=== PATIENT | male | born 1965 | race African-American/Black ===

== ENCOUNTER 2017-09-03 12:55 | Emergency (ER) | payer MEDICARE, MEDICAID ==
[~2017-09-03] VITALS: Ht 182.9 cm; Wt 76.2 kg
--- NOTE | 2017-09-03 13:15 | NUR ---
BIB [facility] FOR FULL TONIC CLONIC SEIZURE, 2MG VERSED GIVEN IN FIELD. PATIENT IS CURRENTLY A/OX 2, BREATHING EVEN AND UNLABORED. NO SOB, NAD. VITALS STABLE. SAFETY AND COMFORT MEASURES IN PLACE. IV INTACT AND PATENT ON RFA, 18 G. AWAITING MD ORDERS.
[2017-09-03] MEDS ORDERED: ALBUTEROL FS 2.5 MG/0.5 ML VIAL.NEB NEB ONE (13:30)
[2017-09-03 13:36] LABS: BASOPHILS # (AUTO) 0.2 /CMM (0.0-0.2); BASOPHILS % (AUTO) 2.9 % (0.0-2.0); EOSINOPHILS # (AUTO) 0.1 /CMM (0.0-0.7); EOSINOPHILS % (AUTO) 1.3 % (0.0-6.0); HEMATOCRIT 38 % (39-51); LYMPHOCYTES % (AUTO) 13.6 % (20.0-44.0); MEAN CORPUSCULAR HEMOGLOBIN 31 PG (26.0-33.0); MEAN CORPUSCULAR HGB CONC 35 g/dl (31.0-36.0); MEAN CORPUSCULAR VOLUME 90 fL (80-96); MONOCYTES # (AUTO) 0.3 /CMM (0.1-1.30); MONOCYTES % (AUTO) 4.8 % (2.0-12.0); NEUTROPHILS # (AUTO) 5.7 /CMM (1.8-8.9); NEUTROPHILS % (AUTO) 77.4 % (43.0-81.0); PLATELET COUNT (AUTO) 170 /CMM (150-450); RDW COEFFICIENT OF VARIATION 12.6 (11.5-15.0); RED BLOOD CELL COUNT(AUTO) 4.19 MIL/uL (4.5-6.0); WHITE BLOOD COUNT (AUTO) 7.3 K/uL (4.3-11.0)
[2017-09-03 13:45] LABS: CARBON DIOXIDE 21 mmol/L (21-32); CHLORIDE 106 mmol/L (98-107); CREATININE 1.2 mg/dL (0.6-1.3); GLUCOSE 71 mg/dL (74-106); POTASSIUM 3.9 mmol/L (3.5-5.1); SODIUM SERUM 140 mmol/L (136-145); UREA NITROGEN, BLOOD 14 mg/dL (7-18)
--- NOTE | 2017-09-03 13:57 | NUR ---
CALLED RT FOR BREATHING TREATMENT
[2017-09-03] MEDS ORDERED: ALBUTEROL FS 2.5 MG/3 ML VIAL.NEB ONE (14:14)
[2017-09-03 14:17] LABS: PHENYTOIN (DILANTIN) < 0.5 ug/ml (10.0-20.0)
--- NOTE | 2017-09-03 14:18 | NUR ---
RT AT BEDSIDE FOR BREATHING TX
[2017-09-03] MEDS ORDERED: PHENYTOIN SODIUM IV 1,000 MG in IV NS 0.9% 100 ML IV ONE (15:30)
--- NOTE | 2017-09-03 15:50 | NUR ---
MEDICATED PATIENT PER MD ORDERS.
[2017-09-03 16:58] VITALS: BP 122/74
--- NOTE | 2017-09-03 16:58 | NUR ---
IV removed. Catheter intact and site benign. Pressure and 4x4 applied to site. No bleeding noted. Patient discharged to home in stable condition. Written and verbal after care instructions given. Patient verbalizes understanding of instruction.
== END 2017-09-03 16:58 | disposition home or self-care (01) ==
LOC: ER 12:57
DX: R56.9 Unspecified convulsions (principal); J18.9 Pneumonia, unspecified organism; Z91.14 Patient's other noncompliance with medication regimen; F17.200 Nicotine dependence, unspecified, uncomplicated; F12.10 Cannabis abuse, uncomplicated; F10.10 Alcohol abuse, uncomplicated
CPT/HCPCS: 36415; 71045; 80048; 80185; 85025; 94640; 96365; 99285; 99406; A4606; J1165; J7030; Z7610

== ENCOUNTER 2017-09-04 14:30 | Emergency (ER) | payer MEDICAID, MEDICARE ==
[~2017-09-04] VITALS: Ht 188 cm; Wt 88.5 kg
[2017-09-04 14:45] VITALS: BP 145/87
[2017-09-04] MEDS ORDERED: ACETAMINOPHEN W/ CODEINE#3 1 EA TABLET PO ONE (15:30)
[2017-09-04] MEDS ORDERED: ALBUTEROL SULFATE 8 GM HFA.AER.AD IH ONE (15:30)
[2017-09-04] MEDS ORDERED: ONDANSETRON 4 MG TAB.RAPDIS PO ONE (15:30)
[2017-09-04] MEDS ORDERED: ONDANSETRON 4 MG TAB.RAPDIS ONE (16:10)
[2017-09-04] MEDS ORDERED: ACETAMINOPHEN W/ CODEINE#3 1 EA TABLET ONE (16:10)
[2017-09-04] MEDS ORDERED: ALBUTEROL FS 2.5 MG/3 ML VIAL.NEB ONE (16:15)
== END 2017-09-04 17:06 | disposition home or self-care (01) ==
LOC: ER 14:34
DX: S20.212A Contusion of left front wall of thorax, initial encounter (principal); G40.909 Epilepsy, unspecified, not intractable, without status epilepticus; F17.200 Nicotine dependence, unspecified, uncomplicated; X58.XXXA Exposure to other specified factors, initial encounter; Y93.89 Activity, other specified; Y92.89 Other specified places as the place of occurrence of the external cause; Y99.8 Other external cause status
CPT/HCPCS: 71100; 94644; 99285; A4606; Q0162; Z7610

== ENCOUNTER 2018-12-26 10:35 | Emergency (ER) | payer MEDICARE, MEDICAID ==
[~2018-12-26] VITALS: Ht 193 cm; Wt 85.7 kg
[2018-12-26 10:55] VITALS: BP 18/68
[2018-12-26] MEDS ORDERED: PHENYTOIN EXTENDED RELEASE 100 MG CAPSULE PO ONE (11:30)
== END 2018-12-26 11:44 | disposition home or self-care (01) ==
LOC: ER 10:39
DX: G40.909 Epilepsy, unspecified, not intractable, without status epilepticus (principal); F10.10 Alcohol abuse, uncomplicated; F17.200 Nicotine dependence, unspecified, uncomplicated; Y90.9 Presence of alcohol in blood, level not specified
CPT/HCPCS: 36415; 80185-TC

== ENCOUNTER 2019-07-07 10:59 | Emergency (ER) | payer MEDICARE, OTHER ==
[~2019-07-07] VITALS: Ht 193 cm; Wt 87.1 kg
--- NOTE | 2019-07-07 11:00 | NUR ---
SEEN BY DR ELLIS
--- NOTE | 2019-07-07 11:12 | NUR ---
BIBA [facility] 78 FOR SEIZURE PER EMS "WAS FOUND SITTING ON A BENCH DISORIENTED/CONFUSED, CO-WORKER STATES THAT PATIENT HAD TONIC CLONIC SEIZURE. BS 60, GAVE D50 ENROUTE, REPEAT BS 216". TO ER 11, HOOKED TO TELECOMMUNICATIONS OPERATOR, SEIZURE PRECAUTIONS APPLIED, PATIENT AOx3, BREATHING EVEN AND UNLABORED. PROVIDED W WARM BLANKET. AWAITING MD PIERCE.
[2019-07-07 12:07] LABS: CALCIUM, SERUM 8.8 mg/dL (8.5-10.1); POTASSIUM 3.5 mmol/L (3.5-5.1)
[2019-07-07 12:12] LABS: BASOPHILS % (AUTO) 0.6 % (0.0-2.0); EOSINOPHILS % (AUTO) 0.7 % (0.0-6.0); HEMATOCRIT 41 % (39-51); HEMOGLOBIN 13.7 g/dL (13.5-17.5); LYMPHOCYTES # (AUTO) 1.4 /CMM (0.8-4.8); LYMPHOCYTES % (AUTO) 33.1 % (20.0-44.0); MEAN CORPUSCULAR HGB CONC 34 g/dl (31.0-36.0); MEAN CORPUSCULAR VOLUME 91 fL (80-96); MONOCYTES # (AUTO) 0.2 /CMM (0.1-1.30); MONOCYTES % (AUTO) 4.9 % (2.0-12.0); NEUTROPHILS # (AUTO) 2.5 /CMM (1.8-8.9); NEUTROPHILS % (AUTO) 60.7 % (43.0-81.0); PLATELET COUNT (AUTO) 160 /CMM (150-450); RED BLOOD CELL COUNT(AUTO) 4.48 MIL/uL (4.5-6.0); WHITE BLOOD COUNT (AUTO) 4.2 K/uL (4.3-11.0)
[2019-07-07 12:13] LABS: ALBUMIN 3.8 g/dL (3.4-5.0); BILIRUBIN,TOTAL 0.4 mg/dL (0.2-1.0); MAGNESIUM 1.9 mg/dL (1.8-2.4); TOTAL PROTEIN, SERUM 6.8 g/dL (6.4-8.2)
[2019-07-07] MEDS ORDERED: LEVETIRACETAM (500MG) 500 MG in IV NS 0.9% 100 ML IV SCH (12:30)
--- NOTE | 2019-07-07 13:26 | NUR ---
PATIENT IN BED ASLEEP, EASILY AROUSABLE BY VOICE. HOOKED TO MONITOR, VSS. KEPT SAFE AND COMFORTABLE. WILL KEEP ON MONITORING.
[2019-07-07] MEDS ORDERED: OXCA300T15 PO (13:43)
[2019-07-07] MEDS ORDERED: LEVE500T20 PO (13:43)
[2019-07-07] MEDS ORDERED: GABA800T11 PO (13:43)
--- NOTE | 2019-07-07 15:05 | NUR ---
IV removed. Catheter intact and site benign. Pressure and 4x4 applied to site. No bleeding noted.Patient discharged to home in stable condition. Written and verbal after care instructions given. Patient verbalizes understanding of instruction.
[2019-07-07 15:07] VITALS: BP 121/62
== END 2019-07-07 15:07 | disposition home or self-care (01) ==
LOC: ER 11:03
DX: G40.909 Epilepsy, unspecified, not intractable, without status epilepticus (principal); E16.2 Hypoglycemia, unspecified; F17.200 Nicotine dependence, unspecified, uncomplicated; Z79.899 Other long term (current) drug therapy
CPT/HCPCS: 36415; 80053; 82962; 83735; 85025; 96365; 99283; J1953; J7030

== ENCOUNTER 2024-01-12 16:00 | Emergency (ER) | payer BC, MEDICAID ==
[~2024-01-12] VITALS: Ht 180.3 cm; Wt 79.8 kg
[~2024-01-12 16:00] MED LIST: GABA800T11 PO; LEVE500T20 PO; OXCA300T15 PO
[2024-01-12 16:30] LABS: BASOPHILS % (AUTO) 0.9 % (0.0-2.0); EOSINOPHILS # (AUTO) 0.1 K/uL (0.0-0.7); EOSINOPHILS % (AUTO) 1.6 % (0.0-6.0); HEMATOCRIT 35 % (39-51); HEMOGLOBIN 11.8 g/dL (13.5-17.5); LYMPHOCYTES # (AUTO) 1.4 K/uL (0.8-4.8); LYMPHOCYTES % (AUTO) 33.3 % (20.0-44.0); MEAN CORPUSCULAR HEMOGLOBIN 30 PG (26.0-33.0); MEAN CORPUSCULAR HGB CONC 34 g/dl (31.0-36.0); MEAN CORPUSCULAR VOLUME 90 fL (80-96); MONOCYTES # (AUTO) 0.3 K/uL (0.1-1.30); MONOCYTES % (AUTO) 6.4 % (2.0-12.0); NEUTROPHILS # (AUTO) 2.3 K/uL (1.8-8.9); NEUTROPHILS % (AUTO) 57.8 % (43.0-81.0); PLATELET COUNT (AUTO) 157 K/uL (150-450); RED BLOOD CELL COUNT(AUTO) 3.91 MIL/uL (4.5-6.0); RED CELL DISTRIBUTION WIDTH 13.9 % (11.5-15.0); WHITE BLOOD COUNT (AUTO) 4.1 K/uL (4.3-11.0)
[2024-01-12 16:39] LABS: CARBON DIOXIDE 30 mmol/L (21-32); CHLORIDE 106 mmol/L (98-107); GLUCOSE 89 mg/dL (74-106); POTASSIUM 3.7 mmol/L (3.5-5.1); SODIUM SERUM 138 mmol/L (136-145); UREA NITROGEN, BLOOD 11 mg/dL (7-18)
[2024-01-12 16:42] LABS: ALCOHOL, BLOOD < 3 mg/dL (0-10)
[2024-01-12 16:44] LABS: PARTIAL THROMBOPLASTIN TIME 27.6 SEC (24.3-34.3); PROTHROMBIN TIME 10.3 SECS (9.2-11.1)
[2024-01-12 16:59] LABS: AMPHETAMINE, URINE NEGATIVE (NEGATIVE); BARBITURATE, URINE NEGATIVE (NEGATIVE); BENZODIAZEPINE, URINE NEGATIVE (NEGATIVE); CANNABINOID, URINE POSITIVE (NEGATIVE); COCCAINE, URINE NEGATIVE (NEGATIVE); OPIATE, URINE NEGATIVE (NEGATIVE); PHENCYCLIDINE SCREEN,URINE NEGATIVE (NEGATIVE)
[2024-01-12 18:22] VITALS: BP 124/64; TEMP 98.7; O2SAT 100
== END 2024-01-12 18:39 | disposition home or self-care (01) ==
LOC: ER 16:02
DX: G40.909 Epilepsy, unspecified, not intractable, without status epilepticus (principal); F19.10 Other psychoactive substance abuse, uncomplicated; F17.200 Nicotine dependence, unspecified, uncomplicated
CPT/HCPCS: 36415; 71045-TC; 80048-TC; 82962-TC; 85025-TC; 85730-TC; G0480